=== PATIENT | female | born 1945 | race African-American/Black ===

== ENCOUNTER → 2019-01-11 | Outpatient (CLI) | payer MEDICARE ==
--- NOTE | 2019-01-11 11:10 | PCVCIMAG ---
APPROVED REPORT Study performed: 01/11/2019 08:06:05 EXAM: Comprehensive 2D, Doppler, and color-flow Echocardiogram Patient Location: Echo lab Status: routine BSA: 1.60 HR: 117 bpmBP: 138/90 mmHg Rhythm: Tachycardia Other Information Study Quality: Excellent Risk Factors: Cardiac Risk Factors: HTN Indications Dyspnea COPD 2D Dimensions IVSd: 9.44 (7-11mm)LVOT Diam: 18.62 (18-24mm) LVDd: 58.46 mm PWd: 8.27 (7-11mm)Ascending Ao: 36.28 (22-36mm) LVDs: 52.97 (25-40mm) Left Atrium: 46.16 (27-40mm) Aortic Root: 28.32 mm LV Single Plane 4CH: 21.14 % LV Single Plane 2CH: 22.99 % Volumes Left Atrial Volume (Systole) Single Plane 4CH: 104.34 mLSingle Plane 2CH: 78.40 mL LA ESV Index: 61.00 mL/m2 Aortic Valve AoV Peak Richard.: 1.39 m/s AO Peak Gr.: 7.70 mmHgLVOT Max P.07 mmHg LVOT Max V: 0.64 m/s JOSE EDUARDO Vmax: 1.26 cm2 Mitral Valve E/A Ratio: 1.0 MV E Max Richard.: 1.14 m/s MV A Richard.: 1.15 m/s Pulmonary Valve PV Peak Gr.: 1.76 mmHg Tricuspid Valve TR Peak Richard.: 3.59 m/s TR Peak Gr.: 51.59 mmHg Left Ventricle Left ventricle is dilated. There is global hypokinesis of the left ventricle. There is normal left ventricular wall thickness. Left ventricular ejection fraction is severely decreased. LVEF is 15%. This study is not technically sufficient to allow evaluation of the LV diastolic function. Right Ventricle The right ventricle is normal size. The right ventricular systolic function is normal. Atria Left atrium is severely dilated. Right atrium is severely dilated. Aortic Valve The aortic valve is normal in structure. Trace aortic regurgitation. There is no aortic valvular stenosis. Mitral Valve The mitral valve is normal in structure. Moderate to severe mitral regurgitation No evidence of mitral valve stenosis. Tricuspid Valve The tricuspid valve is normal in structure. Moderate tricuspid regurgitation. Pulmonary artery pressure is 63mmHg. Pulmonic Valve The pulmonary valve is normal in structure. Trace to mild pulmonic regurgitation. Great Vessels The aortic root is normal in size. IVC is normal in size and collapses >50% with inspiration. Pericardium Trace pericardial effusion. <Conclusion> Left ventricle is dilated. LVEF is 15%. There is global hypokinesis of the left ventricle. Left atrium is severely dilated. Right atrium is severely dilated. The aortic valve is normal in structure. Trace aortic regurgitation. The mitral valve is normal in structure. Moderate to severe mitral regurgitation The tricuspid valve is normal in structure. Moderate tricuspid regurgitation. Pulmonary artery pressure is 63mmHg. The pulmonary valve is normal in structure. Trace to mild pulmonic regurgitation. Trace pericardial effusion.
== END ==
LOC: PCVCIMAG 08:10
PROVIDERS: ATTEND Internal Medicine
DX: I42.8 Other cardiomyopathies (principal); I50.20 Unspecified systolic (congestive) heart failure; I49.9 Cardiac arrhythmia, unspecified; R06.09 Other forms of dyspnea; Z87.891 Personal history of nicotine dependence
CPT/HCPCS: 93306; G0463

== ENCOUNTER → 2019-01-24 | Outpatient (CLI) | payer MEDICARE | END | disposition home or self-care (01) | LOC: PCVCCLINIC 15:00 | PROVIDERS: ATTEND Nurse Practitioner Adult Health | DX: I11.0 Hypertensive heart disease with heart failure (principal); I50.23 Acute on chronic systolic (congestive) heart failure; I42.9 Cardiomyopathy, unspecified; Z79.899 Other long term (current) drug therapy; Z82.49 Family history of ischemic heart disease and other diseases of the circulatory system; Z87.891 Personal history of nicotine dependence; Z72.89 Other problems related to lifestyle; Z90.49 Acquired absence of other specified parts of digestive tract; Z90.710 Acquired absence of both cervix and uterus | CPT/HCPCS: 36415; 80061; 93005; G0463 ==

== ENCOUNTER → 2019-02-22 | Outpatient (CLI) | payer MEDICARE | END | disposition home or self-care (01) | LOC: PCVCCLINIC 13:30 | PROVIDERS: ATTEND Internal Medicine | DX: I11.0 Hypertensive heart disease with heart failure (principal); I50.23 Acute on chronic systolic (congestive) heart failure; I42.9 Cardiomyopathy, unspecified; Z79.899 Other long term (current) drug therapy; Z90.710 Acquired absence of both cervix and uterus; Z82.49 Family history of ischemic heart disease and other diseases of the circulatory system; Z87.891 Personal history of nicotine dependence | CPT/HCPCS: G0463 ==